=== PATIENT | female | born 1965 | race Caucasian/White ===

== ENCOUNTER 2017-03-21 12:20 | Inpatient (IN) | payer MEDICARE, OTHER ==
[~2017-03-21] VITALS: Ht 160 cm; Wt 74.0 kg
[~2017-03-21 12:20] MED LIST: ATOR10TA9 PO; CALC0.25 PO; CLOP75TA PO; CLOP75TA52 PO; ETOMIDATE 20 MG/10 ML ONE; HYDR1TAB12 PO; MIDAZOLAM 1 MG/ML, 5ML ONE; MYCO500T PO; OMEP-110 PO; PRED5TAB PO; PROPOFOL 10 MG/ML, 100ML IV ONE; SUCCINYLCHOLINE 20 MG/ML, 10ML ONE; TACR1CAP4 PO
[2017-03-21] MEDS ORDERED: SODIUM CHLORIDE FLUSH 10ML SYR IVF ONE (13:00)
[2017-03-21] MEDS ORDERED: PLEASE ENTER HEIGHT AND WEIGHT MC SCH (13:00)
[2017-03-21] MEDS ORDERED: SODIUM CHLORIDE 0.9% 1,000ML IVBOLUS ONE ×2 (13:00→20:30)
[2017-03-21 13:28] LABS: MEAN CORPUSCULAR HEMOGLOBIN 30.6 pg (27.0-34.8); MEAN CORPUSCULAR HGB CONC 33.9 g/dL (32.4-35.8); MEAN CORPUSCULAR VOLUME 90.4 fL (80-100); MEAN PLATELET VOLUME 11.5 fL (7.4-10.4); PLATELET COUNT 150 x10^3/uL (130-400); RED BLOOD COUNT 2.72 x10^6/uL (3.82-5.3)
[2017-03-21] MEDS ORDERED: FENTANYL PF 100 MCG/2ML ONE ×2 (13:33→16:26)
[2017-03-21 13:41] LABS: ALBUMIN 1.5 g/dL (3.4-5.0); ANION GAP 13 mmol/L (5-15); CALCIUM 6.6 mg/dL (8.5-10.1); CHLORIDE 102 mmol/L (98-107)
[2017-03-21 13:45] LABS: ALANINE AMINOTRANSFERASE 15 U/L (12-78); ALKALINE PHOSPHATASE 158 U/L (45-117); BILIRUBIN,TOTAL 2.3 mg/dL (0.2-1.0); CREATININE 4.31 mg/dL (0.55-1.02); TOTAL PROTEIN 4.5 g/dL (6.4-8.2)
[2017-03-21 13:56] LABS: MD YES
[2017-03-21 14:01] LABS: BAND#(MANUAL) 4.05 x10^3/uL; BANDS%(MANUAL) 14 % (0-7); LYMPH#(MANUAL) 0.87 x10^3/uL (1-3.4); LYMPHS% (MANUAL) 3 % (22-44); MONOS#(MANUAL) 2.02 x10^3/uL (0.3-2.7); MONOS% (MANUAL) 7 % (2-9); SEG#(MANUAL) 21.96 x10^3/uL (1.8-6.8); SEGS% (MANUAL) 76 % (42-75)
[2017-03-21 14:02] LABS: INTERNATIONAL NORMALIZED RATIO 6.35 (0.93-1.1); PROTHROMBIN TIME 63.7 Seconds (9.6-11.5)
[2017-03-21 14:03] LABS: PMNS WITH VACUOLES 1+
[2017-03-21 14:04] LABS: <PLATELET ESTIMATE> ADEQUATE; ANISOCYTOSIS 1+; LARGE PLATELETS 1+
[2017-03-21] MEDS ORDERED: NOREPINEPHRINE 4 MG in SODIUM CHLORIDE 0.9% 246 ML IV PRN (14:30)
[2017-03-21] MEDS ORDERED: PIPERACILLIN/TAZO/PMX 3.375GM 50 ML IV ONE (14:30)
[2017-03-21] MEDS ORDERED: OMNIPAQUE 350 MG/ML, 100ML BOTTLE ONE (14:56)
[2017-03-21] MEDS: SODIUM CHLORIDE 0.9% 1,000ML IVBOLUS ONE ×2 (15:25→16:00)
[2017-03-21 15:38] LABS: MICROSCOPIC AUTO
[2017-03-21 15:52] LABS: CULTURE INDICATED? YES
[2017-03-21] MEDS ORDERED: FENTANYL PF 100 MCG/2ML IVPush PRN (16:30)
[2017-03-21] MEDS ORDERED: PIPERACILLIN/TAZO/PMX 3.375GM 50 ML ONE (16:44)
[2017-03-21] MEDS ORDERED: CEFTAROLINE 600 MG in SODIUM CHLORIDE 0.9% 100 ML IV ONE (17:30)
[2017-03-21] MEDS ORDERED: VASOPRESSIN 100 UNIT in SODIUM CHLORIDE 0.9% 495 ML IV PRN (17:30)
[2017-03-21] MEDS ORDERED: MEROPENEM 1 GM in SODIUM CHLORIDE 0.9% 100 ML IV SCH (17:30)
[2017-03-21] MEDS ORDERED: POLYETHYLENE GLYCOL 17 GM PACKET PO PRN (17:30)
[2017-03-21] MEDS ORDERED: BISACODYL 10 MG SUPP PR PRN (17:30)
[2017-03-21] MEDS ORDERED: SUCCINYLCHOLINE 20 MG/ML, 10ML IVPush ONE (18:00)
[2017-03-21] MEDS ORDERED: PROPOFOL 100 ML IV PRN ×2 (18:00→20:09)
[2017-03-21] MEDS ORDERED: MIDAZOLAM 1 MG/ML, 5ML IVPush ONE (18:00)
[2017-03-21 18:04] LABS: INTERNATIONAL NORMALIZED RATIO 6.81 (0.93-1.1); PROTHROMBIN TIME 68.2 Seconds (9.6-11.5)
[2017-03-21] MEDS ORDERED: INSULIN REGULAR 100 UNITS/ML, 3ML VIAL IVPush ONE (20:30)
[2017-03-21] MEDS ORDERED: LIDOCAINE-MPF 1%, 2ML ENDO PRN (20:30)
[2017-03-21] MEDS ORDERED: DEXTROSE 50%, 50ML SYRINGE IVPush ONE (20:30)
[2017-03-21] MEDS ORDERED: PHARMACY MAY ADJ FOR RENAL FX MC SCH (20:30)
[2017-03-21] MEDS ORDERED: CALCIUM CHLORIDE 13.6 MEQ in SODIUM CHLORIDE 0.9% 100 ML IV ONE (21:00)
[2017-03-21] MEDS: LINEZOLID PMX 600MG/300ML 300 ML IV SCH (21:13)
[2017-03-21] MEDS: SODIUM CHLORIDE 0.9% 1,000 ML IV SCH (21:13)
[2017-03-21] MEDS: HYDROCORTISONE 100 MG INJ. IVPush SCH (21:26)
[2017-03-21] MEDS: MEROPENEM 500 MG in SODIUM CHLORIDE 0.9% 100 ML IV SCH (21:26)
[2017-03-21 22:21] VITALS: BP 126/55
[2017-03-21] MEDS: NOREPINEPHRINE 4 MG in SODIUM CHLORIDE 0.9% 246 ML IV PRN (22:24)
[2017-03-21] MEDS: MICAFUNGIN 100 MG in SODIUM CHLORIDE 0.9% 100 ML IV SCH (22:32)
[2017-03-21 22:34] VITALS: BP 119/52
[2017-03-21 22:52] VITALS: BP 143/53
[2017-03-21 23:29] VITALS: BP 122/54
[2017-03-21 23:44] VITALS: BP 128/52
[2017-03-21 23:50] VITALS: BP 128/52
[2017-03-22 00:05] VITALS: BP 129/54
[2017-03-22 00:51] VITALS: BP 128/53
[2017-03-22] MEDS: HYDROCORTISONE 100 MG INJ. IVPush SCH (02:34)
[2017-03-22 03:17] LABS: INTERNATIONAL NORMALIZED RATIO 2.84 (0.93-1.1); PROTHROMBIN TIME 28.9 Seconds (9.6-11.5)
[2017-03-22 03:18] LABS: MEAN CORPUSCULAR HEMOGLOBIN 30.1 pg (27.0-34.8); MEAN CORPUSCULAR HGB CONC 33.4 g/dL (32.4-35.8); MEAN CORPUSCULAR VOLUME 90.2 fL (80-100); MEAN PLATELET VOLUME 11.2 fL (7.4-10.4); PLATELET COUNT 159 x10^3/uL (130-400); RED BLOOD COUNT 2.54 x10^6/uL (3.82-5.3); RED CELL DISTRIBUTION WIDTH 19.6 % (9.6-15.2)
[2017-03-22 03:22] LABS: ALBUMIN 1.7 g/dL (3.4-5.0); ANION GAP 13 mmol/L (5-15); CALCIUM 6.6 mg/dL (8.5-10.1); CHLORIDE 106 mmol/L (98-107)
[2017-03-22 03:25] LABS: ALANINE AMINOTRANSFERASE 17 U/L (12-78); ALKALINE PHOSPHATASE 160 U/L (45-117); BILIRUBIN,TOTAL 2.6 mg/dL (0.2-1.0); CREATININE 4.06 mg/dL (0.55-1.02); TOTAL PROTEIN 4.8 g/dL (6.4-8.2)
[2017-03-22 03:40] LABS: MD YES
[2017-03-22 03:42] LABS: <PLATELET ESTIMATE> ADEQUATE; <RBC MORPHOLOGY> NORMAL; BAND#(MANUAL) 2.33 x10^3/uL; BANDS%(MANUAL) 7 % (0-7); LARGE PLATELETS 1+; LYMPH#(MANUAL) 0.67 x10^3/uL (1-3.4); LYMPHS% (MANUAL) 2 % (22-44); MONOS% (MANUAL) 3 % (2-9); SEGS% (MANUAL) 88 % (42-75)
[2017-03-22 04:00] VITALS: BP 106/43
[2017-03-22] MEDS: SODIUM CHLORIDE 0.9% 1,000 ML IV SCH (05:22)
[2017-03-22] MEDS: LINEZOLID PMX 600MG/300ML 300 ML IV SCH ×2 (05:24→18:01)
[2017-03-22] MEDS: NOREPINEPHRINE 4 MG in SODIUM CHLORIDE 0.9% 246 ML IV PRN (08:50)
[2017-03-22] MEDS ORDERED: DARBEPOETIN 60 MCG/ML SQ SCH (09:00)
[2017-03-22] MEDS ORDERED: FENTANYL PF 2,500 MCG in SODIUM CHLORIDE 0.9% 200 ML IV PRN (09:30)
[2017-03-22] MEDS: MEROPENEM 500 MG in SODIUM CHLORIDE 0.9% 100 ML IV SCH ×2 (09:33→23:11)
[2017-03-22] MEDS: PANTOPRAZOLE 40 MG IV IVPush SCH (09:33)
[2017-03-22 12:57] LABS: RED BLOOD COUNT 2.54 x10^6/uL (3.82-5.3)
[2017-03-22 12:59] LABS: CALCIUM 6.6 mg/dL (8.5-10.1)
[2017-03-22 13:15] LABS: ABSOLUTE RETICS # 0.041 x10^6/uL (0.5-2.5); RETICULOCYTE COUNT % 1.64 % (0.5-1.5)
[2017-03-22] MEDS: NOREPINEPHRINE 8 MG in SODIUM CHLORIDE 0.9% 242 ML IV PRN (15:45)
[2017-03-22] MEDS ORDERED: ALBUMIN HUMAN 25% 100 ML IV ONE (16:00)
[2017-03-22] MEDS ORDERED: DEXTROSE 50%, 50ML SYRINGE ONE (21:31)
[2017-03-22] MEDS: INSULIN LISPRO 100 UNITS/ML, PEN SQ-INSULIN SCH (21:42)
[2017-03-22 21:57] LABS: ANION GAP 18 mmol/L (5-15); CALCIUM 6.8 mg/dL (8.5-10.1); CHLORIDE 103 mmol/L (98-107)
[2017-03-22] MEDS ORDERED: DEXTROSE 50%, 50ML SYRINGE IVPush ONE (22:00)
[2017-03-22 22:12] LABS: MEAN CORPUSCULAR HEMOGLOBIN 29.8 pg (27.0-34.8); MEAN CORPUSCULAR HGB CONC 32.7 g/dL (32.4-35.8); MEAN CORPUSCULAR VOLUME 91.1 fL (80-100); MEAN PLATELET VOLUME 11.1 fL (7.4-10.4); PLATELET COUNT 130 x10^3/uL (130-400); RED BLOOD COUNT 2.35 x10^6/uL (3.82-5.3); RED CELL DISTRIBUTION WIDTH 19.9 % (9.6-15.2)
[2017-03-22 22:31] LABS: ANISOCYTOSIS 1+; BAND#(MANUAL) 1.09 x10^3/uL; BANDS%(MANUAL) 5 % (0-7); LYMPH#(MANUAL) 0.87 x10^3/uL (1-3.4); LYMPHS% (MANUAL) 4 % (22-44); MONOS#(MANUAL) 0.22 x10^3/uL (0.3-2.7); MONOS% (MANUAL) 1 % (2-9); MYELOCYTES# (MANUAL) 0.22 x10^3/uL (0-0); MYELOCYTES% (MANUAL) 1 % (0-0); REACTIVE LYMPHS # (MANUAL) 0.22 x10^3/uL (0-0); REACTIVE LYMPHS % (MANUAL) 1 % (0-0); SEGS% (MANUAL) 88 % (42-75)
[2017-03-22 22:32] LABS: POLYCHROMASIA 1+
[2017-03-22 22:34] LABS: OVALOCYTES 1+; TARGET CELLS 1+; TEAR DROPS 1+
[2017-03-22 22:35] LABS: <PLATELET ESTIMATE> ADEQUATE; LARGE PLATELETS 1+
[2017-03-22 22:39] LABS: MD YES
[2017-03-22 23:05] VITALS: BP 142/52
[2017-03-23] MEDS: MICAFUNGIN 100 MG in SODIUM CHLORIDE 0.9% 100 ML IV SCH ×2 (01:33→23:35)
[2017-03-23] MEDS: NOREPINEPHRINE 8 MG in SODIUM CHLORIDE 0.9% 242 ML IV PRN (03:00)
[2017-03-23] MEDS: INSULIN LISPRO 100 UNITS/ML, PEN SQ-INSULIN SCH ×4 (03:15→21:13)
[2017-03-23 03:36] LABS: ALBUMIN 2.1 g/dL (3.4-5.0); ANION GAP 18 mmol/L (5-15); CALCIUM 6.7 mg/dL (8.5-10.1); CHLORIDE 103 mmol/L (98-107)
[2017-03-23 03:37] LABS: MEAN CORPUSCULAR HEMOGLOBIN 29.1 pg (27.0-34.8); MEAN CORPUSCULAR HGB CONC 32.6 g/dL (32.4-35.8); MEAN CORPUSCULAR VOLUME 89.5 fL (80-100); MEAN PLATELET VOLUME 10.6 fL (7.4-10.4); PLATELET COUNT 106 x10^3/uL (130-400); RED BLOOD COUNT 3.02 x10^6/uL (3.82-5.3); RED CELL DISTRIBUTION WIDTH 20.4 % (9.6-15.2)
[2017-03-23 03:41] LABS: ALANINE AMINOTRANSFERASE 22 U/L (12-78); ALKALINE PHOSPHATASE 182 U/L (45-117); BILIRUBIN,TOTAL 3.4 mg/dL (0.2-1.0); CREATINE KINASE, TOTAL 332 U/L (26-192); CREATININE 2.46 mg/dL (0.55-1.02); TOTAL PROTEIN 5.1 g/dL (6.4-8.2)
[2017-03-23 04:00] VITALS: BP 125/58
[2017-03-23 04:02] LABS: MD YES
[2017-03-23 04:07] LABS: BAND#(MANUAL) 0.65 x10^3/uL; BANDS%(MANUAL) 3 % (0-7); LYMPH#(MANUAL) 0.65 x10^3/uL (1-3.4); LYMPHS% (MANUAL) 3 % (22-44); MONOS#(MANUAL) 1.73 x10^3/uL (0.3-2.7); MONOS% (MANUAL) 8 % (2-9); REACTIVE LYMPHS # (MANUAL) 0.22 x10^3/uL (0-0); REACTIVE LYMPHS % (MANUAL) 1 % (0-0); SEG#(MANUAL) 18.36 x10^3/uL (1.8-6.8); SEGS% (MANUAL) 85 % (42-75)
[2017-03-23 04:08] LABS: ANISOCYTOSIS 1+
[2017-03-23 04:10] LABS: OVALOCYTES 1+; POLYCHROMASIA 1+
[2017-03-23 04:11] LABS: PMNS WITH VACUOLES 1+; TARGET CELLS 1+; TEAR DROPS 1+
[2017-03-23 04:12] LABS: <PLATELET ESTIMATE> DECREASED; LARGE PLATELETS 1+
[2017-03-23] MEDS: LINEZOLID PMX 600MG/300ML 300 ML IV SCH ×2 (06:17→17:33)
[2017-03-23] MEDS: PANTOPRAZOLE 40 MG IV IVPush SCH (07:30)
[2017-03-23] MEDS ORDERED: ERGOCALCIFEROL 50,000 UNIT CAPSULE PO SCH (08:00)
[2017-03-23] MEDS: MEROPENEM 500 MG in SODIUM CHLORIDE 0.9% 100 ML IV SCH (12:19)
[2017-03-23] MEDS ORDERED: CALCIUM GLUCONATE 9.2 MEQ in SODIUM CHLORIDE 0.9% 100 ML IV ONE (12:30)
[2017-03-23 22:24] LABS: CLOSTRIDIUM DIFFICILE ANTIGEN POSITIVE; CLOSTRIDIUM DIFFICILE TOXIN NEGATIVE (Negative)
[2017-03-24] MEDS: INSULIN LISPRO 100 UNITS/ML, PEN SQ-INSULIN SCH ×4 (03:14→21:00)
[2017-03-24 04:00] VITALS: BP 100/45
[2017-03-24 05:00] LABS: MEAN CORPUSCULAR HGB CONC 33.5 g/dL (32.4-35.8); MEAN CORPUSCULAR VOLUME 89.7 fL (80-100); MEAN PLATELET VOLUME 10.5 fL (7.4-10.4); PLATELET COUNT 67 x10^3/uL (130-400); RED BLOOD COUNT 2.52 x10^6/uL (3.82-5.3); RED CELL DISTRIBUTION WIDTH 20.7 % (9.6-15.2)
[2017-03-24 05:02] LABS: ALANINE AMINOTRANSFERASE 31 U/L (12-78); ANION GAP 22 mmol/L (5-15); CALCIUM 6.4 mg/dL (8.5-10.1); CHLORIDE 104 mmol/L (98-107); CREATININE 3.16 mg/dL (0.55-1.02)
[2017-03-24 05:08] LABS: ALBUMIN 1.6 g/dL (3.4-5.0); ALKALINE PHOSPHATASE 192 U/L (45-117); BILIRUBIN,TOTAL 3.3 mg/dL (0.2-1.0); TOTAL PROTEIN 4.6 g/dL (6.4-8.2); TRIGLYCERIDES 531 mg/dL (50-200)
[2017-03-24] MEDS: LINEZOLID PMX 600MG/300ML 300 ML IV SCH ×2 (05:36→17:37)
[2017-03-24 05:43] LABS: BASOPHILS % (AUTO) 0 % (0-1); EOSINOPHILS # (AUTO) 0.03 x10^3/uL (0-0.4); EOSINOPHILS % (AUTO) 0 % (1-7); LYMPHOCYTES # (AUTO) 0.83 x10^3/uL (1-3.4); LYMPHOCYTES % (AUTO) 6 % (22-44); MD SCAN; MONOCYTES # (AUTO) 0.18 x10^3/uL (0.2-0.8); MONOCYTES % (AUTO) 1 % (2-9); NEUTROPHILS # (AUTO) 12.27 x10^3/uL (1.8-6.8); NEUTROPHILS % (AUTO) 92 % (42-75)
[2017-03-24] MEDS: PANTOPRAZOLE 40 MG IV IVPush SCH (07:58)
[2017-03-24] MEDS ORDERED: CALCIUM GLUCONATE 4.6 MEQ in SODIUM CHLORIDE 0.9% 100 ML IV ONE (09:00)
[2017-03-24] MEDS: ALBUMIN HUMAN 25% 100 ML IV PRN ×3 (11:33→13:45)
[2017-03-24] MEDS: MEROPENEM 500 MG in SODIUM CHLORIDE 0.9% 100 ML IV SCH (15:46)
[2017-03-24] MEDS: MICAFUNGIN 100 MG in SODIUM CHLORIDE 0.9% 100 ML IV SCH (23:31)
[2017-03-25] MEDS: INSULIN LISPRO 100 UNITS/ML, PEN SQ-INSULIN SCH ×4 (03:11→21:04)
[2017-03-25 04:00] VITALS: BP 119/57
[2017-03-25 04:54] LABS: ALANINE AMINOTRANSFERASE 27 U/L (12-78); ALBUMIN 2.4 g/dL (3.4-5.0); ANION GAP 18 mmol/L (5-15); CALCIUM 7.2 mg/dL (8.5-10.1); CHLORIDE 103 mmol/L (98-107); CREATININE 2.17 mg/dL (0.55-1.02)
[2017-03-25 04:56] LABS: ALKALINE PHOSPHATASE 280 U/L (45-117); BILIRUBIN,TOTAL 5.5 mg/dL (0.2-1.0); TOTAL PROTEIN 4.9 g/dL (6.4-8.2)
[2017-03-25 04:57] LABS: MEAN CORPUSCULAR HEMOGLOBIN 29.5 pg (27.0-34.8); MEAN CORPUSCULAR HGB CONC 33.2 g/dL (32.4-35.8); MEAN CORPUSCULAR VOLUME 88.6 fL (80-100); RED BLOOD COUNT 2.38 x10^6/uL (3.82-5.3); RED CELL DISTRIBUTION WIDTH 19.5 % (9.6-15.2)
[2017-03-25] MEDS: LINEZOLID PMX 600MG/300ML 300 ML IV SCH ×2 (05:34→17:24)
[2017-03-25 06:01] LABS: BASOPHILS # (AUTO) 0.03 x10^3/uL (0-0.1); BASOPHILS % (AUTO) 0 % (0-1); EOSINOPHILS # (AUTO) 0.01 x10^3/uL (0-0.4); EOSINOPHILS % (AUTO) 0 % (1-7); LYMPHOCYTES # (AUTO) 0.47 x10^3/uL (1-3.4); LYMPHOCYTES % (AUTO) 6 % (22-44); MD SCAN; MEAN PLATELET VOLUME 10.5 fL (7.4-10.4); MONOCYTES # (AUTO) 0.11 x10^3/uL (0.2-0.8); MONOCYTES % (AUTO) 1 % (2-9); NEUTROPHILS # (AUTO) 7.68 x10^3/uL (1.8-6.8); NEUTROPHILS % (AUTO) 92 % (42-75); PLATELET COUNT 29 x10^3/uL (130-400)
[2017-03-25] MEDS: PANTOPRAZOLE 40 MG IV IVPush SCH (07:49)
[2017-03-25] MEDS ORDERED: POTASSIUM CHLORIDE 40 MEQ in SODIUM CHLORIDE 0.9% 100 ML IV ONE (08:30)
[2017-03-25 13:14] LABS: MEAN CORPUSCULAR HEMOGLOBIN 29.6 pg (27.0-34.8); MEAN CORPUSCULAR HGB CONC 33.6 g/dL (32.4-35.8); MEAN CORPUSCULAR VOLUME 88.2 fL (80-100); RED BLOOD COUNT 2.39 x10^6/uL (3.82-5.3); RED CELL DISTRIBUTION WIDTH 19.7 % (9.6-15.2)
[2017-03-25 13:31] LABS: MEAN PLATELET VOLUME 11.2 fL (7.4-10.4)
[2017-03-25 13:37] LABS: PLATELET COUNT 26 x10^3/uL (130-400)
[2017-03-25 13:38] LABS: BASOPHILS # (AUTO) 0.03 x10^3/uL (0-0.1); BASOPHILS % (AUTO) 0 % (0-1); EOSINOPHILS # (AUTO) 0.01 x10^3/uL (0-0.4); EOSINOPHILS % (AUTO) 0 % (1-7); LYMPHOCYTES # (AUTO) 0.63 x10^3/uL (1-3.4); LYMPHOCYTES % (AUTO) 7 % (22-44); MD SCAN; MONOCYTES # (AUTO) 0.24 x10^3/uL (0.2-0.8); MONOCYTES % (AUTO) 3 % (2-9); NEUTROPHILS % (AUTO) 90 % (42-75)
[2017-03-25] MEDS: MEROPENEM 500 MG in SODIUM CHLORIDE 0.9% 100 ML IV SCH (16:23)
[2017-03-25] MEDS ORDERED: ESOMEPRAZOLE 40 MG IV IVPush ONE (21:00)
[2017-03-25] MEDS: MICAFUNGIN 100 MG in SODIUM CHLORIDE 0.9% 100 ML IV SCH (23:03)
[2017-03-26] MEDS: INSULIN LISPRO 100 UNITS/ML, PEN SQ-INSULIN SCH ×4 (03:09→21:29)
[2017-03-26 03:32] LABS: MEAN CORPUSCULAR HEMOGLOBIN 29.9 pg (27.0-34.8); MEAN CORPUSCULAR HGB CONC 33.8 g/dL (32.4-35.8); MEAN CORPUSCULAR VOLUME 88.4 fL (80-100); RED BLOOD COUNT 2.37 x10^6/uL (3.82-5.3); RED CELL DISTRIBUTION WIDTH 19.4 % (9.6-15.2)
[2017-03-26 03:33] LABS: MEAN PLATELET VOLUME 11.3 fL (7.4-10.4)
[2017-03-26 03:34] LABS: PLATELET COUNT 19 x10^3/uL (130-400)
[2017-03-26 03:36] LABS: ALANINE AMINOTRANSFERASE 27 U/L (12-78); ANION GAP 10 mmol/L (5-15); CALCIUM 6.9 mg/dL (8.5-10.1); CHLORIDE 107 mmol/L (98-107); CREATININE 2.72 mg/dL (0.55-1.02)
[2017-03-26 03:39] LABS: ALKALINE PHOSPHATASE 257 U/L (45-117); BILIRUBIN,TOTAL 6.1 mg/dL (0.2-1.0); TOTAL PROTEIN 4.5 g/dL (6.4-8.2)
[2017-03-26 03:56] LABS: BASOPHILS # (AUTO) 0.06 x10^3/uL (0-0.1); BASOPHILS % (AUTO) 1 % (0-1); EOSINOPHILS # (AUTO) 0.03 x10^3/uL (0-0.4); EOSINOPHILS % (AUTO) 0 % (1-7); LYMPHOCYTES # (AUTO) 0.86 x10^3/uL (1-3.4); LYMPHOCYTES % (AUTO) 9 % (22-44); MD SCAN; MONOCYTES # (AUTO) 0.25 x10^3/uL (0.2-0.8); MONOCYTES % (AUTO) 3 % (2-9); NEUTROPHILS # (AUTO) 8.24 x10^3/uL (1.8-6.8); NEUTROPHILS % (AUTO) 87 % (42-75)
[2017-03-26 04:00] VITALS: BP 103/53
[2017-03-26] MEDS: LINEZOLID PMX 600MG/300ML 300 ML IV SCH ×2 (05:24→17:33)
[2017-03-26] MEDS ORDERED: TPN PER PHARMACY MC SCH (09:30)
[2017-03-26] MEDS ORDERED: POTASSIUM PHOSPHATE 22 MEQ in SODIUM CHLORIDE 0.9% 250 ML IV ONE (10:00)
[2017-03-26] MEDS: PANTOPRAZOLE 40 MG IV IVPush SCH ×2 (10:33→21:28)
[2017-03-26 11:45] LABS: INTERNATIONAL NORMALIZED RATIO 6.98 (0.93-1.1); PROTHROMBIN TIME 69.9 Seconds (9.6-11.5)
[2017-03-26] MEDS ORDERED: PHYTONADIONE 10 MG in SODIUM CHLORIDE 0.9% 50 ML IV ONE (12:00)
[2017-03-26 12:45] LABS: HIT RESULT POSITIVE (NEGATIVE)
[2017-03-26] MEDS ORDERED: PVN PER PHARMACY IV SCH (16:30)
[2017-03-26] MEDS: NOREPINEPHRINE 8 MG in SODIUM CHLORIDE 0.9% 242 ML IV PRN (16:35)
[2017-03-26] MEDS: MEROPENEM 500 MG in SODIUM CHLORIDE 0.9% 100 ML IV SCH (16:35)
[2017-03-26] MEDS ORDERED: DEXTROSE 50%, 50ML SYRINGE IVPush PRN (17:00)
[2017-03-26] MEDS ORDERED: DEXTROSE 10% 500 ML IV PRN (17:00)
[2017-03-26] MEDS ORDERED: [UNRECOGNIZED DRUG - OTHER] IV SCH (17:00)
[2017-03-26] MEDS ORDERED: DEXTROSE 70% IV SCH ×2 (17:00)
[2017-03-26] MEDS ORDERED: [UNRECOGNIZED DRUG - OTHER] IV SCH (17:00)
[2017-03-26] MEDS ORDERED: AMINO ACID 10% IV SCH ×2 (17:00)
[2017-03-26] MEDS ORDERED: FAT EMULSIONS IV SCH ×2 (17:00)
[2017-03-27] MEDS: MICAFUNGIN 100 MG in SODIUM CHLORIDE 0.9% 100 ML IV SCH ×2 (00:37→23:20)
[2017-03-27] MEDS: MORPHINE SULFATE 4 MG/ML, 1ML IVPush PRN ×3 (01:59→19:39)
[2017-03-27] MEDS: INSULIN LISPRO 100 UNITS/ML, PEN SQ-INSULIN SCH ×4 (03:06→21:33)
[2017-03-27 04:00] VITALS: BP 113/62
[2017-03-27 04:46] LABS: INTERNATIONAL NORMALIZED RATIO 1.49 (0.93-1.1); PROTHROMBIN TIME 15.4 Seconds (9.6-11.5)
[2017-03-27 04:51] LABS: MEAN CORPUSCULAR HEMOGLOBIN 30.2 pg (27.0-34.8); MEAN CORPUSCULAR HGB CONC 33.9 g/dL (32.4-35.8); MEAN PLATELET VOLUME 11.2 fL (7.4-10.4); RED BLOOD COUNT 1.98 x10^6/uL (3.82-5.3)
[2017-03-27 04:54] LABS: CHLORIDE 108 mmol/L (98-107)
[2017-03-27 05:04] LABS: PLATELET COUNT 12 x10^3/uL (130-400)
[2017-03-27 05:07] LABS: ALANINE AMINOTRANSFERASE 27 U/L (12-78); ALBUMIN 1.8 g/dL (3.4-5.0); ALKALINE PHOSPHATASE 182 U/L (45-117); ANION GAP 12 mmol/L (5-15); BILIRUBIN,TOTAL 5.8 mg/dL (0.2-1.0); CALCIUM 6.7 mg/dL (8.5-10.1); CREATININE 3.16 mg/dL (0.55-1.02); PREALBUMIN 5.6 mg/dL (20.0-40.0); TOTAL PROTEIN 4.5 g/dL (6.4-8.2)
[2017-03-27 05:30] LABS: TRIGLYCERIDES 353 mg/dL (50-200)
[2017-03-27 05:43] LABS: BASOPHILS % (AUTO) 1 % (0-1); EOSINOPHILS # (AUTO) 0.03 x10^3/uL (0-0.4); EOSINOPHILS % (AUTO) 0 % (1-7); LYMPHOCYTES # (AUTO) 0.95 x10^3/uL (1-3.4); LYMPHOCYTES % (AUTO) 8 % (22-44); MD SCAN; MONOCYTES # (AUTO) 0.21 x10^3/uL (0.2-0.8); MONOCYTES % (AUTO) 2 % (2-9); NEUTROPHILS # (AUTO) 10.42 x10^3/uL (1.8-6.8); NEUTROPHILS % (AUTO) 89 % (42-75)
[2017-03-27] MEDS: LINEZOLID PMX 600MG/300ML 300 ML IV SCH ×2 (05:45→18:25)
[2017-03-27] MEDS: PANTOPRAZOLE 40 MG IV IVPush SCH ×2 (08:59→21:33)
[2017-03-27 15:40] VITALS: BP 94/51
[2017-03-27 16:00] VITALS: BP 103/60
[2017-03-27 16:33] VITALS: BP 94/51
[2017-03-27] MEDS ORDERED: [UNRECOGNIZED DRUG - OTHER] IV SCH (17:00)
[2017-03-27] MEDS ORDERED: DEXTROSE 70% IV SCH (17:00)
[2017-03-27] MEDS ORDERED: FAT EMULSIONS IV SCH (17:00)
[2017-03-27] MEDS ORDERED: AMINO ACID 10% IV SCH (17:00)
[2017-03-27] MEDS: FILTER, DISP 1.2 MICRON FOR TPN/PVN IV PRN (17:28)
[2017-03-27] MEDS: NOREPINEPHRINE 8 MG in SODIUM CHLORIDE 0.9% 242 ML IV PRN (20:02)
[2017-03-27] MEDS: MEROPENEM 500 MG in SODIUM CHLORIDE 0.9% 100 ML IV SCH (20:24)
[2017-03-28] MEDS: MORPHINE SULFATE 4 MG/ML, 1ML IVPush PRN ×3 (00:13→19:29)
[2017-03-28] MEDS: INSULIN LISPRO 100 UNITS/ML, PEN SQ-INSULIN SCH ×4 (03:01→21:05)
[2017-03-28 04:15] VITALS: BP 112/58
[2017-03-28 04:25] LABS: ALBUMIN 1.6 g/dL (3.4-5.0); ANION GAP 10 mmol/L (5-15); CALCIUM 7.1 mg/dL (8.5-10.1); CHLORIDE 103 mmol/L (98-107)
[2017-03-28 04:28] LABS: ALANINE AMINOTRANSFERASE 33 U/L (12-78); ALKALINE PHOSPHATASE 167 U/L (45-117); BILIRUBIN,TOTAL 5.8 mg/dL (0.2-1.0); CREATININE 2.17 mg/dL (0.55-1.02); TOTAL PROTEIN 4.5 g/dL (6.4-8.2)
[2017-03-28 04:35] LABS: INTERNATIONAL NORMALIZED RATIO 1.3 (0.93-1.1); PROTHROMBIN TIME 13.4 Seconds (9.6-11.5)
[2017-03-28 04:36] LABS: MEAN CORPUSCULAR HEMOGLOBIN 29.8 pg (27.0-34.8); MEAN CORPUSCULAR HGB CONC 33.6 g/dL (32.4-35.8); MEAN CORPUSCULAR VOLUME 88.9 fL (80-100); RED BLOOD COUNT 2.63 x10^6/uL (3.82-5.3); RED CELL DISTRIBUTION WIDTH 17.3 % (9.6-15.2)
[2017-03-28 04:39] LABS: MEAN PLATELET VOLUME 10.6 fL (7.4-10.4); PLATELET COUNT 16 x10^3/uL (130-400)
[2017-03-28 05:03] LABS: BASOPHILS # (AUTO) 0.03 x10^3/uL (0-0.1); BASOPHILS % (AUTO) 0 % (0-1); EOSINOPHILS # (AUTO) 0.08 x10^3/uL (0-0.4); EOSINOPHILS % (AUTO) 1 % (1-7); LYMPHOCYTES # (AUTO) 1.05 x10^3/uL (1-3.4); LYMPHOCYTES % (AUTO) 8 % (22-44); MD SCAN; MONOCYTES # (AUTO) 0.33 x10^3/uL (0.2-0.8); MONOCYTES % (AUTO) 3 % (2-9); NEUTROPHILS % (AUTO) 88 % (42-75)
[2017-03-28] MEDS: LINEZOLID PMX 600MG/300ML 300 ML IV SCH ×2 (05:27→16:51)
[2017-03-28] MEDS: PANTOPRAZOLE 40 MG IV IVPush SCH ×2 (07:31→21:04)
[2017-03-28] MEDS: FILTER, DISP 1.2 MICRON FOR TPN/PVN IV PRN (16:51)
[2017-03-28] MEDS ORDERED: [UNRECOGNIZED DRUG - OTHER] IV SCH (17:00)
[2017-03-28] MEDS ORDERED: DEXTROSE 70% IV SCH (17:00)
[2017-03-28] MEDS ORDERED: AMINO ACID 10% IV SCH (17:00)
[2017-03-28] MEDS ORDERED: FAT EMULSIONS IV SCH (17:00)
[2017-03-28] MEDS: NOREPINEPHRINE 8 MG in SODIUM CHLORIDE 0.9% 242 ML IV PRN (19:58)
[2017-03-28] MEDS: MEROPENEM 500 MG in SODIUM CHLORIDE 0.9% 100 ML IV SCH (19:58)
[2017-03-28] MEDS: MICAFUNGIN 100 MG in SODIUM CHLORIDE 0.9% 100 ML IV SCH (23:50)
[2017-03-29] MEDS: MORPHINE SULFATE 4 MG/ML, 1ML IVPush PRN ×2 (01:13→08:13)
[2017-03-29] MEDS: INSULIN LISPRO 100 UNITS/ML, PEN SQ-INSULIN SCH ×2 (03:17→07:52)
[2017-03-29 04:00] VITALS: BP 108/54
[2017-03-29 04:31] LABS: ANION GAP 11 mmol/L (5-15); CALCIUM 7.1 mg/dL (8.5-10.1); CHLORIDE 101 mmol/L (98-107); CREATININE 2.44 mg/dL (0.55-1.02)
[2017-03-29 04:46] LABS: MEAN CORPUSCULAR HEMOGLOBIN 29.2 pg (27.0-34.8); MEAN CORPUSCULAR HGB CONC 33.1 g/dL (32.4-35.8); MEAN CORPUSCULAR VOLUME 88.3 fL (80-100); RED BLOOD COUNT 2.43 x10^6/uL (3.82-5.3); RED CELL DISTRIBUTION WIDTH 17.4 % (9.6-15.2)
[2017-03-29 05:02] LABS: MEAN PLATELET VOLUME 11.3 fL (7.4-10.4)
[2017-03-29 05:05] LABS: PLATELET COUNT 14 x10^3/uL (130-400)
[2017-03-29 05:06] LABS: BASOPHILS # (AUTO) 0.03 x10^3/uL (0-0.1); BASOPHILS % (AUTO) 0 % (0-1); EOSINOPHILS # (AUTO) 0.19 x10^3/uL (0-0.4); EOSINOPHILS % (AUTO) 2 % (1-7); LYMPHOCYTES # (AUTO) 1.04 x10^3/uL (1-3.4); LYMPHOCYTES % (AUTO) 11 % (22-44); MD SCAN; MONOCYTES # (AUTO) 0.26 x10^3/uL (0.2-0.8); MONOCYTES % (AUTO) 3 % (2-9); NEUTROPHILS # (AUTO) 8.37 x10^3/uL (1.8-6.8); NEUTROPHILS % (AUTO) 85 % (42-75)
[2017-03-29] MEDS: LINEZOLID PMX 600MG/300ML 300 ML IV SCH (05:40)
[2017-03-29] MEDS ORDERED: SODIUM PHOSPHATE 10 MMOL in SODIUM CHLORIDE 0.9% 500 ML IV ONE (07:30)
[2017-03-29] MEDS ORDERED: MAGNESIUM SULFATE PMX 2GM/50ML 50 ML IV ONE (07:30)
[2017-03-29] MEDS: PANTOPRAZOLE 40 MG IV IVPush SCH (08:11)
[2017-03-29] MEDS ORDERED: morphine SULFATE 10 MG/ML, 1ML ONE (10:18)
[2017-03-29] MEDS ORDERED: LORazepam 2 MG/ML, 1ML ONE (10:20)
[2017-03-29] MEDS ORDERED: LORazepam 2 MG/ML, 1ML IV PRN (10:30)
[2017-03-29] MEDS ORDERED: LORazepam 2 MG/ML, 1ML IV ONE (10:30)
[2017-03-29] MEDS ORDERED: morphine SULFATE 10 MG/ML, 1ML IV ONE (10:30)
[2017-03-29] MEDS ORDERED: ATROPINE OPHTH SOLN 1%, 2ML PO PRN (10:30)
[2017-03-29] MEDS ORDERED: INSULIN LISPRO 100 UNITS/ML, PEN SQ-INSULIN SCH (21:00)
== END 2017-03-29 13:40 | disposition expired | DRG 870 ==
LOC: ED 14:37 → EDIP 15:48 → CCU 18:37
PROVIDERS: ADMIT Hospitalist; ATTEND Hospitalist
PROC: 0BH17EZ Insertion of Endotracheal Airway into Trachea, Via Natural or Artificial Opening (ICD-10-PCS; principal; 2017-03-21)
PROC: 5A1955Z Respiratory Ventilation, Greater than 96 Consecutive Hours (ICD-10-PCS; 2017-03-21)
PROC: 02HV33Z Insertion of Infusion Device into Superior Vena Cava, Percutaneous Approach (ICD-10-PCS; 2017-03-21)
PROC: 5A1D70Z Performance of Urinary Filtration, Intermittent, Less than 6 Hours Per Day (ICD-10-PCS; 2017-03-22)
PROC: 30233L1 Transfusion of Nonautologous Fresh Plasma into Peripheral Vein, Percutaneous Approach (ICD-10-PCS; 2017-03-22)
PROC: 30233N1 Transfusion of Nonautologous Red Blood Cells into Peripheral Vein, Percutaneous Approach (ICD-10-PCS; 2017-03-22)
PROC: 30233K1 Transfusion of Nonautologous Frozen Plasma into Peripheral Vein, Percutaneous Approach (ICD-10-PCS; 2017-03-22)
PROC: 5A1D70Z Performance of Urinary Filtration, Intermittent, Less than 6 Hours Per Day (ICD-10-PCS; 2017-03-24)
PROC: 0T9B70Z Drainage of Bladder with Drainage Device, Via Natural or Artificial Opening (ICD-10-PCS; 2017-03-25)
PROC: 5A1D70Z Performance of Urinary Filtration, Intermittent, Less than 6 Hours Per Day (ICD-10-PCS; 2017-03-27)
DX: A41.9 Sepsis, unspecified organism (principal); J96.00 Acute respiratory failure, unspecified whether with hypoxia or hypercapnia; R65.21 Severe sepsis with septic shock; E43 Unspecified severe protein-calorie malnutrition; G93.41 Metabolic encephalopathy; K65.1 Peritoneal abscess; K26.5 Chronic or unspecified duodenal ulcer with perforation; J18.1 Lobar pneumonia, unspecified organism; E87.2 Acidosis; N18.6 End stage renal disease; Z99.11 Dependence on respirator [ventilator] status; K56.609 Unspecified intestinal obstruction, unspecified as to partial versus complete obstruction; T86.12 Kidney transplant failure; T86.891 Other transplanted tissue failure; C56.9 Malignant neoplasm of unspecified ovary; N25.81 Secondary hyperparathyroidism of renal origin; R17 Unspecified jaundice; I12.0 Hypertensive chronic kidney disease with stage 5 chronic kidney disease or end stage renal disease; T81.30XA Disruption of wound, unspecified, initial encounter; D68.9 Coagulation defect, unspecified; E11.21 Type 2 diabetes mellitus with diabetic nephropathy; E11.51 Type 2 diabetes mellitus with diabetic peripheral angiopathy without gangrene; D64.9 Anemia, unspecified; E11.22 Type 2 diabetes mellitus with diabetic chronic kidney disease; E78.5 Hyperlipidemia, unspecified; Y83.0 Surgical operation with transplant of whole organ as the cause of abnormal reaction of the patient, or of later complication, without mention of misadventure at the time of the procedure; N25.0 Renal osteodystrophy; Z66 Do not resuscitate; Z51.5 Encounter for palliative care; E89.0 Postprocedural hypothyroidism; E87.5 Hyperkalemia; Z88.1 Allergy status to other antibiotic agents; Z79.899 Other long term (current) drug therapy; Z79.1 Long term (current) use of non-steroidal anti-inflammatories (NSAID); Z79.2 Long term (current) use of antibiotics; Z79.82 Long term (current) use of aspirin; Z95.818 Presence of other cardiac implants and grafts; Z99.2 Dependence on renal dialysis; Z93.3 Colostomy status; Z92.21 Personal history of antineoplastic chemotherapy; Z86.718 Personal history of other venous thrombosis and embolism; Z85.07 Personal history of malignant neoplasm of pancreas; Z85.43 Personal history of malignant neoplasm of ovary; Z92.3 Personal history of irradiation; Z87.11 Personal history of peptic ulcer disease; Z88.8 Allergy status to other drugs, medicaments and biological substances; D69.6 Thrombocytopenia, unspecified
CPT/HCPCS: 31500; 36415; 36430; 36569; 36600; 51702; 70450; 71045; 74018; 74177; 80048; 80053; 81001; 82150; 82306; 82310; 82330; 82533; 82550; 82728; 82803; 82805; 82962; 83540; 83550; 83605; 83615; 83690; 83735; 83970; 84100; 84132; 84134; 84145; 84478; 84550; 85014; 85018; 85025; 85045; 85610; 85730; 86022; 86704; 86706; 86803; 86850; 86900; 86923; 87040; 87070; 87077; 87081; 87086; 87106; 87186; 87205; 87324; 87340; 87493; 93005; 93970; 94002; 94003; 96361; 96365; 96367; 96375; 99292; J0610; J0712; J0881; J1815; J2020; J2185; J2248; J2250; J2270; J2543; J2704; J3010; J3430; J3475; J3480; P9047; Q9967; C9113; J0330; J1644; J1720; J2060; J3420; J7030; J7040; J7050; P9016; P9017